=== PATIENT | female | born 1980 | race Hispanic/Latino ===

== ENCOUNTER 2025-06-24 22:48 | Emergency (ER) | payer OTHER ==
[~2025-06-24] VITALS: Ht 160 cm; Wt 90.7 kg
[~2025-06-24 22:48] MED LIST: CYAN1TAB44 PO; IBUP-2784 PO; LORA1TAB3 PO; PALI156D IM
[2025-06-24 23:17] LABS: IMMATURE GRANULOCYTE ABSOLUTE 0.01 K/uL (0-1); NUCLEATED RED BLOOD CELLS 0.0 % (0.0-0.19); PLATELET COUNT (AUTO) 249 K/uL (130-400); RED BLOOD CELL COUNT(AUTO) 4.08 MIL/uL (4.00-5.50); RED CELL DISTRIBUTION WIDTH 19.8 % (11.0-15.5); WHITE BLOOD COUNT (AUTO) 6.3 K/uL (4.8-10.8)
[2025-06-24 23:26] LABS: CREATININE 0.7 mg/dL (0.5-1.0); GLOMERULAR FILTR. RATE CALC 109 mL/min (>90); GLUCOSE,RANDOM 81 mg/dL (70-105); SODIUM SERUM 137 mmol/L (136-145); UREA NITROGEN, BLOOD 7 mg/dL (7-18)
[2025-06-24 23:30] LABS: ALCOHOL, BLOOD 157 mg/dL (0-10); ASPARTATE AMINOTRANSFERASE 25 U/L (10-37); TOTAL PROTEIN, SERUM 6.8 g/dL (6.0-8.3)
--- NOTE | 2025-06-24 23:38 | ERN ---
ED Note History of Present Illness Stated Complaint: suicidal ideation Chief Complaint: Suicidal Ideation Time Seen by MD: 22:54 Time Seen by Midlevel: 22:55 Dictation: 45-year-old female presents to the emergency department per EMS due to report of having suicide ideations. Patient states that she took approximately 10 tablets of clonazepam along with heavily of alcohol in a couple of beers. She states that all this occurred after having had an argument with the girlfriend. Upon initial evaluation, the patient presents anxious and teary-eyed. Allergies: Coded Allergies: Coconut (Unverified Allergy, Unknown, ANAPHYLAXIS, 10/14/14) cinnamon (Unverified Allergy, Unknown, ANAPHYLAXIS, 10/14/14) iodine (Unverified Allergy, Unknown, ANAPHYLAXIS, 10/14/14) latex (Unverified Allergy, Unknown, ANAPHYLAXIS, 10/14/14) shellfish derived (Unverified Allergy, Unknown, ANAPHYLAXIS, 10/14/14) Home Meds Reported Medications Paliperidone Palmitate (Invega Sustenna) 156 Mg/1 Ml Disp.syrin, 156 MG IM MONTHLY, DIS.SYR 10/14/14 Lorazepam (Lorazepam) 1 Mg Tablet, 1 MG PO TID, TAB 10/14/14 Cyanocobalamin/Folic Acid (Vitamin E65-Dldsk Acid Tablet) 1 Each Tablet, 1 EACH PO AM, TAB 10/14/14 Ibuprofen (Ibuprofen 200 mg Tablet) 200 Mg Tablet, 400 MG PO AD PRN for PAIN, TAB 10/14/14 Past Medical History Past Medical History: Anxiety, Bipolar Surgical History: Bariatric Surgery PSYCH History: anxiety Social History: ETOH RN Note Reviewed/Agreed w/PFSH: Yes Review of System Dictation Psych: Suicidal ideations Initial Vital Sign VS Vital Signs Date Time Temp Pulse Resp B/P (MAP) Pulse Ox O2 Delivery O2 Flow Rate FiO2 06/24/25 23:10 98.1 89 18 105/79 99 Room Air 0 06/25/25 00:51 21 Physical Exam Dictation General: awake, alert, NAD Head/Face: Normocephalic, atraumatic Eyes: PERRL, EOMI ENT: Oral mucosa moist Neck: Trachea midline, supple Cardiovascular: RRR, no edema Respiratory: Symmetrical, non-labored Abdomen: Soft, non-tender, non-distended, no guarding. Skin: Warm, dry, good turgor, no rash MS/Extremity: Pulses equal, no cyanosis, neurovascular intact, FROM Neuro: COAx4, GCS 15, steady gait, Psych: Anxious, suicidal ideations. Results (Laboratory/Radiology) Laboratory/Radiology Laboratory Tests Test 06/24/25 23:11 06/24/25 23:44 06/25/25 05:23 White Blood Count 6.3 K/uL (4.8-10.8) Red Blood Count 4.08 MIL/uL (4.00-5.50) Hemoglobin 10.3 g/dL (12.0-16.0) L Hematocrit 32.8 % (36-48) L Mean Corpuscular Volume 80.4 fL (79-99) Mean Corpuscular Hemoglobin 25.2 pg (27.0-33.0) L Mean Corpuscular Hemoglobin Concent 31.4 g/dL (32.0-36.0) L Red Cell Distribution Width 19.8 % (11.0-15.5) H Platelet Count 249 K/uL (130-400) Mean Platelet Volume 9.8 fL (7.5-10.5) Immature Granulocyte % (Auto) 0.2 % (0-1) Neutrophils (%) (Auto) 49.5 % (40.0-77.0) Lymphocytes (%) (Auto) 41.4 % (21.0-51.0) Monocytes (%) (Auto) 5.1 % (3.0-13.0) Eosinophils (%) (Auto) 2.5 % (0.0-8.0) Basophils (%) (Auto) 1.3 % (0.0-5.0) Neutrophils # (Auto) 3.1 K/uL (1.8-7.7) Lymphocytes # (Auto) 2.6 K/uL (1.0-4.8) Monocytes # (Auto) 0.3 K/uL (0.1-1.0) Eosinophils # (Auto) 0.16 K/uL (0.00-0.70) Basophils # (Auto) 0.08 K/uL (0.00-0.20) Absolute Immature Granulocyte (auto 0.01 K/uL (0-1) Nucleated Red Blood Cells 0.0 % (0.0-0.19) Red Blood Cell Morphology See comments Sodium Level 137 mmol/L (136-145) Potassium Level 3.2 mmol/L (3.5-5.1) L Chloride Level 105 mmol/L (101-111) Carbon Dioxide Level 22 mmol/L (21-32) Blood Urea Nitrogen 7 mg/dL (7-18) Creatinine 0.7 mg/dL (0.5-1.0) Glomerular Filtration Rate Calc 109 mL/min (>90) Random Glucose 81 mg/dL (70-105) Total Calcium 7.2 mg/dL (8.5-10.1) L Total Bilirubin 0.3 mg/dL (0.2-1.0) Aspartate Amino Transf (AST/SGOT) 25 U/L (10-37) Alanine Aminotransferase (ALT/SGPT) 21 U/L (12-78) Alkaline Phosphatase 51 U/L (50-136) Total Protein 6.8 g/dL (6.0-8.3) Albumin 3.5 g/dL (3.5-5.0) Serum Test, Qualitative NEGATIVE (NEGATIVE) Salicylates Level < 2.8 mg/dL (2.8-20.0) L Acetaminophen Level < 1 mcg/mL (10-30) L Serum Alcohol 157 mg/dL (0-10) H 67 mg/dL (0-10) H Urine Color COLORLESS (YELLOW) Urine Appearance CLEAR (CLEAR) Urine pH 6.5 (5.0-8.0) Urine Specific [place] 1.004 (1.001-1.031) Urine Protein NEGATIVE mg/dL (NEGATIVE) Urine Glucose (UA) NEGATIVE mg/dL (NEGATIVE) Urine Ketones NEGATIVE mg/dL (NEGATIVE) Urine Occult Blood SMALL (NEGATIVE) H Urine Nitrate NEGATIVE (NEGATIVE) Urine Bilirubin NEGATIVE mg/dL (NEGATIVE) Urine Urobilinogen 0.2 mg/dL (0.2-1.0) Urine Leukocyte Esterase NEGATIVE Johnny/uL Urine Opiates Screen NEGATIVE (NEGATIVE) Urine Barbiturates Screen NEGATIVE (NEGATIVE) Urine Phencyclidine Screen NEGATIVE (NEGATIVE) Urine Amphetamines Screen NEGATIVE (NEGATIVE) Urine Benzodiazepines Screen NEGATIVE (NEGATIVE) Urine Cocaine Screen NEGATIVE (NEGATIVE) Urine Marijuana (THC) Screen NEGATIVE (NEGATIVE) Labs Reviewed?: Yes ED Course ED Course Orders Procedure Category Date Status Time Alcohol, Blood LAB 06/24/25 Complete 22:59 Cbc With Differential LAB 06/24/25 Complete 22:59 Comprehensive LAB 06/24/25 Complete Metabolic Panel 22:59 Urinalysis Profile LAB 06/24/25 Complete 22:59 Testing, LAB 06/24/25 Complete Serum Hcg 22:59 Salicylate LAB 06/24/25 Complete 22:59 Acetaminophen LAB 06/24/25 Complete 22:59 Drug Screen Urine LAB 06/24/25 Complete 22:59 Potassium Bicarb/Cit PHA 06/25/25 Complete Ac 25meq (K-Lyte Ta 02:00 Alcohol, Blood LAB 06/25/25 Complete 05:20 Current Medications Medications (Trade) Dose Ordered Sig/Uriah Route PRN Reason Start Time Stop Time Status Last Admin Dose Admin Potassium Bicarbonate (K-Lyte Tablet Eff 25 Meq Tablet.eff) 25 meq ONCE ONCE PO 06/25/25 02:00 06/25/25 02:01 DC 06/25/25 02:08 Vital Signs Date Time Temp Pulse Resp B/P (MAP) Pulse Ox O2 Delivery O2 Flow Rate FiO2 06/25/25 07:44 98.2 83 18 123/63 99 Room Air* 0 06/25/25 05:48 76 18 108/69 98 Room Air* 0 06/25/25 04:10 74 18 103/63 95 Room Air* 0 06/25/25 02:37 69 18 90/51 98 Room Air* 0 06/25/25 01:34 71 18 97/56 97 Room Air* 0 06/25/25 00:51 70 18 98/61 98 Room Air* 0 06/24/25 23:10 98.1 89 18 105/79 99 Room Air 0 Medical Decision Making MDM 7:00 a.m. Assumed care of the patient-Braxton Sloan Awaiting [facility] evaluation. Differential diagnosis: Suicidal ideations with a plan, anxiety depression with stressors in life, alcohol intoxication/withdrawal, recreational drug abuse worsening this psychiatric disorder Patient remained stable throughout her stay in the ER. Awaiting behavioral health evaluation. 8:53 a.m. patient has been cleared for discharge by behavioral health specialist and deemed that she does not meet criteria for inpatient admission. Patient's family member arrived and a plan and follow-up has already been arranged for her care. Rationale: Tests considered and ordered secondary to shared decision making include: Labs Previous outside records reviewed: Old ER visits. Risk of complication and/or morbidity or mortality of patient management: None Medications-Per medication reconciliation Need for hospitalization: Patient does not meet criteria for hospitalization. Need for emergency major/minor surgery: No There are no social concerns with this patient. Prescription drug management Prescriptions will include symptomatic care Patient's prior external medical records from other ER visits were reviewed by me as indicated. Prior testing and results from previous visits were reviewed. Prior tests were taken into account with medical decision making and resource utilization, independent historian/historians were used to obtain complete medical history. I independently interpreted the test that were performed, results were reviewed by me and considered findings on radiology if ordered. Medical management and examination interpretation discussions were had by me with other qualified healthcare professionals as indicated for the patient's care. Problem List Problem List: (1) Suicidal ideations (2) Depression (3) Thyroid cancer DX & DISP Disposition: Discharge Departure Impression: Primary Impression: Suicidal ideations Additional Impression: Depression Condition: Stable Additional Instructions: Patient and the caregiver have been informed of all the diagnostic tests and the imaging conducted during the today's visit to the emergency room and has verbalized understanding of the results I have personally reviewed and interpreted all diagnostic exams performed here in the ER today as well as the vital signs documented by the nursing staff. The patient is now being discharged to home and should follow up with the primary care physician or the specialist as directed by the ER staff. 1 schedule a follow-up appointment; call your primary care physician's office on the next business day to set up a follow-up appointment. 2. Monitor symptoms; if your symptoms worsen return to the emergency room immediately. 3. Return to school/work; you may return to work or school in 2 days or as directed by your primary care physician. 4. Manage pain and fever; take [id number] Tylenol or Advil for pain or fever if there are no contraindications follow the recommended dosage instructions. 5. Stay well hydrated; drink plenty of oral fluids to stay hydrated. 6. Take prescribed medications; take any medications prescribed in the emergency room as directed bring them with you to your primary care physician visit for possible adjustments. 7. Complete medication course; finish the entire course of medication as prescribed even if you start feeling better. Do not have any leftover medication unless instructed otherwise. 8. Follow up on culture results; if a urine culture and wound culture was ordered in the emergency room please follow-up with your primary care physician within 2-3 days to review the culture and sensitivity report for appropriate ant ibiotic therapy adjustments. 9. Resume home medications; you may resume taking your home medications unless instructed otherwise. Patient to follow up with [facility] for further management. Behavioral health specialist indicated that they would also call the patient in a few days Referrals: JOHANNA ABRAMS MD (PCP) [facility] Jun 24, 2025 23:38 ISRRAEL TAMAYO MD Jun 25, 2025 08:55
[2025-06-24 23:51] LABS: APPEARANCE,URINE CLEAR (CLEAR); GLUCOSE, URINE (UA) NEGATIVE (NEGATIVE); LEUKOCYTE ESTERASE ,URINE NEGATIVE Leu/uL (NEGATIVE); NITRATE,URINE NEGATIVE (NEGATIVE); OCCULT BLOOD,URINE SMALL (NEGATIVE)
[2025-06-24 23:52] LABS: ADD UA MICROSCOPIC NO
[2025-06-24 23:58] LABS: AMPHET/METH SCREEN,URINE NEGATIVE (NEGATIVE); BARBITURATE SCREEN, URINE NEGATIVE (NEGATIVE); CANNABINOID SCREEN,URINE NEGATIVE (NEGATIVE); COCAINE SCREEN,URINE NEGATIVE (NEGATIVE)
--- NOTE | 2025-06-25 00:56 | NUR ---
[facility] CALLED AT THIS TIME, CASE #[id number]
--- NOTE | 2025-06-25 00:57 | NUR ---
ARRIVED AT BEDSIDE, STATES SHE THINKS PATIENT MAY HAVE TAKEN 2 PILLS OF CLONAZEPAM, STATES THERE WERE 2 PILLS ON COUNTER AND LATER THE PILLS WERE NOT THERE, STATES PATIENT STATED TOOK 2 PILLS OF CLONAZEPAM.
--- NOTE | 2025-06-25 03:15 | NUR ---
PATIENT AT THIS TIME WENT TO BATHROOM VIA WHEELCHAIR, AT BEDSIDE.
--- NOTE | 2025-06-25 05:52 | NUR ---
PATIENT MEDICALLY CLEAR AT THIS TIME; [facility] NOTIFIED AT THIS TIME
--- NOTE | 2025-06-25 06:31 | NUR ---
PATIENT EASILY AWOKEN, UPSET, LOUD, CUSSING. WANTING EVERYONE AROUND HER TO BE QUIET SO SHE CAN REST.
--- NOTE | 2025-06-25 07:00 | NUR ---
[facility] SCREENER PRESENT TO SEE PATIENT, PATIENT DENIES SUICIDAL IDEATIONS AND DOES NOT REMEMBER COMING IN BY EMS.
--- NOTE | 2025-06-25 07:42 | NUR ---
0730 [facility]ICAL SCREENER IN ROOM TALKING WITH PT.
--- NOTE | 2025-06-25 07:43 | NUR ---
0745 PT YELLING AT TROPICAL SCREENER, EMOTIONALLLY UPSET, YELLING, REFUSING TO ANSWER QUESTIONS WITH SCREENER.
[2025-06-25 07:44] VITALS: BP 123/63; PULSE 83; RESP 18; TEMP 98.3; O2SAT 99
--- NOTE | 2025-06-25 09:15 | NUR ---
0855 PT CLEARED FROM [facility], PT NOW DOES NOT STATES SUICIAL THOUGHTS, VERBALIZED SHE WANT TO GO HOME WITH SPOUSE AT BEDSIDE, SPOUSE VERIFIED INSTRUCTIONS FROM [facility] SCREENER WILL BE CALLED FOR APPOINTMENT AT THE CENTER. PT REFUESED W/C , STATES SHE CAN WALK TO ED LOBBY, DRIVEN HOME BY SPOUSE.
== END 2025-06-25 09:17 | disposition home or self-care (01) ==
LOC: EDH 22:48
DX: R45.851 Suicidal ideations (principal); F31.9 Bipolar disorder, unspecified; F41.9 Anxiety disorder, unspecified; Z88.8 Allergy status to other drugs, medicaments and biological substances; Z91.013 Allergy to seafood; Z91.018 Allergy to other foods; Z91.040 Latex allergy status; Z79.899 Other long term (current) drug therapy
CPT/HCPCS: 99285; 80053; 80305; 84703; 85025; 81003; 36415; G0481; 99283